=== PATIENT | male | born 1990 | race Caucasian/White ===

== ENCOUNTER → 2018-04-09 13:18 | Outpatient (CLI) | payer OTHER | END | disposition home or self-care (01) | LOC: D.MRI 04-02 16:00 | DX: M25.511 Pain in right shoulder (principal) ==

== ENCOUNTER 2018-07-03 10:42 | Day surgery (SDC) | payer OTHER ==
[~2018-07-03] VITALS: Ht 182.9 cm; Wt 88.5 kg
[~2018-07-03 10:42] MED LIST: ALBUTEROL SULF8.5 GM INH; CLONAZEPAM 0.5 MG PO
[2018-07-03 12:07] VITALS: BP 113/60; Ht 182.9 cm; Wt 88.5 kg
[2018-07-03] MEDS ORDERED: HYDROCODON-ACET15 ML PO (14:47)
--- NOTE | 2018-07-05 09:48 | OP ---
PATIENT NAME: GUADALUPE CHARLES MEDICAL RECORD: [id number] :86 LOCATION:[facility] ADMISSION DATE: SURGEON: GEORGE DE ANDA MD DATE OF OPERATION: 07/03/2018 PREOPERATIVE DIAGNOSIS: Impingement syndrome of the right shoulder. POSTOPERATIVE DIAGNOSIS: Impingement syndrome of the right shoulder. PROCEDURES: 1. Arthroscopic distal clavicle excision done through separate incision -- 1 cm. 2. Arthroscopic subacromial decompression, acromioplasty, and bursectomy. SURGEON: George De Anda MD ANESTHESIA: General. INTRAOPERATIVE COMPLICATIONS: None. SUMMARY OF PATHOLOGIC FINDINGS: Consistent with the preoperative diagnosis, the patient had acromioclavicular arthritis and downward sloping of acromion with excoriation of acromioclavicular arthritis. Attritional tearing of the rotator cuff was seen, but no full-thickness tearing was noted. OPERATIVE SUMMARY IN DETAIL: After obtaining the appropriate preoperative orthopedic surgery consent as well as an anesthetic consultation, evaluation and clearance, the patient was placed on the operating table in supine position. After general laryngeal mask airway was administered, the patient was placed in the left lateral decubitus position. All pressures points were well padded to include down leg peroneal pad as well as axillary roll. The patient was held firmly to the operating table using the vacuum pack suction system. Right upper extremity and shoulder were then prepped and draped in routine sterile fashion. The arm was held in the Arthrex traction boom at 30 degrees of forward flexion, 30 degrees of abduction, 10 pounds of traction laterally. Arthroscopy was established in the glenohumeral joint from the posterior portal. Diagnostic arthroscopy of the glenohumeral joint showed no intraarticular abnormalities. Attention was then turned to the subacromial space. While in the subacromial space, accessory lateral portal was created through which the undersurface of the acromion was denuded of all soft tissue elements. Coracoacromial ligament was released. Having completed this, a 5-0 barrel bur was used to perform acromioplasty at the level of acromioclavicular joint. Next, through a separate anterior arthroscopic portal and direct arthroscopic visualization, distal clavicle was excised for 1 cm. Having completed this, arthroscopy portals were closed in routine interrupted fashion using 4-0 Prolene. Sterile dressings were applied. The patient was awakened, taken to recovery room in stable condition. All final needle and sponge counts were correct. TRANSINT:[id number] Voice Confirmation ID: [id number] DOCUMENT ID: [id number] OPERATIVE REPORT [id number] GUADALUPE CHARLES MD, GEORGE VELARDE at 0948 CC: [id number] DICTATION DATE: 07/03/18 145 [employer] SAL[employer] MANAGER: 07/03/18 [address] [place] [id number] [place] [id number]
== END 2018-07-03 23:59 | disposition home or self-care (01) ==
LOC: D.OPS 10:42 → D.PAN 19:15 → D.OPS 19:15
PROVIDERS: ATTEND Orthopaedic Surgery
DX: M75.41 Impingement syndrome of right shoulder (principal)